=== PATIENT | male | born 1980 | race Caucasian/White ===

== ENCOUNTER 2020-06-02 22:25 | Emergency (ER) | payer OTHER ==
[~2020-06-02 22:25] MED LIST: FLEXERIL10 MG PO; MEDROL 4MG DOSEP4 MG PO; NORCO 5-325 TA1 EACH PO
[2020-06-03 00:14] LABS: BILIRUBIN NEGATIVE (NEGATIVE); BLOOD NEGATIVE Ery/uL (NEGATIVE); CLARITY CLEAR (CLEAR); COLOR YELLOW (YELLOW); GLUCOSE (U) NORMAL (NORMAL); LEUKOCYTES NEGATIVE Leu/uL (NEGATIVE); NITRITE NEGATIVE (NEGATIVE); PROTEIN NEGATIVE (NEGATIVE); UROBILINOGEN 0.2 mg/dL (0.2-1.0); pH 5.5 (5.0-9.0)
[2020-06-03 00:46] LABS: BASOPHIL 0.9 % (0-2); EOSINOPHIL 1.3 % (0-5); HCT 42.4 % (42.0-52.0); HGB 14.2 g/dl (13.2-18.0); LYMPHOCYTE 34.8 % (15-48); MCH 30.3 pg (25.0-31.0); MCHC 33.5 g/dL (32.0-36.0); MCV 90.4 fL (78.0-100.0); MONOCYTE 9.9 % (0-12); MPV 9.1 fL (6.0-9.5); NEUTROPHIL 52.1 % (41-80); NRBC 0.3; PLT 253 K/uL (150-400); RBC 4.69 M/uL (4.70-6.00); RDW 13.2 % (11.5-14.0); WBC 7.9 K/uL (4.0-10.5)
[2020-06-03 00:56] LABS: INR 1.02 (0.9-1.2); PROTHROMBIN TIME 12.7 SECONDS (11.4-13.6); PTT 29.6 SECONDS (22.2-34.7)
[2020-06-03 01:03] LABS: ALBUMIN 3.8 g/dL (3.4-5.0); BILIRUBIN - TOTAL 0.4 mg/dL (0.2-1.0); BUN/CREAT RATIO (CALC) 19.8 RATIO; CREATININE 0.86 mg/dL (0.67-1.17); GLOBULIN (CALCULATION) 3.5 g/dL; POTASSIUM 3.8 mmol/L (3.5-5.1); TOTAL PROTEIN 7.3 g/dL (6.4-8.2)
[2020-06-03] MEDS ORDERED: PROTONIX 40MG T40 MG PO (04:06)
[2020-06-03] MEDS ORDERED: BENTYL10 MG PO (04:06)
== END 2020-06-03 04:25 | disposition home or self-care (01) ==
LOC: FER 22:25
PROVIDERS: Emergency Medicine Emergency Medical Services
DX: K62.5 Hemorrhage of anus and rectum (principal); R51.9 Headache, unspecified; G89.29 Other chronic pain; R10.9 Unspecified abdominal pain; R11.10 Vomiting, unspecified; I10 Essential (primary) hypertension; Z90.49 Acquired absence of other specified parts of digestive tract; Z86.19 Personal history of other infectious and parasitic diseases
CPT/HCPCS: 36415; 80053; 81003; 82150; 83690; 85025; 85610; 85730; 86850; 86900; 86901; 93005; C9113; J1170; J1885; J2405; J7030; Q9967

== ENCOUNTER 2020-08-10 02:37 | Emergency (ER) | payer OTHER ==
[~2020-08-10 02:37] MED LIST changes: +BENTYL10 MG PO; +PROTONIX 40MG T40 MG PO
[2020-08-10 03:18] LABS: BASOPHIL 0.5 % (0-2); EOSINOPHIL 0.2 % (0-5); HCT 44.1 % (42.0-52.0); HGB 15.2 g/dl (13.2-18.0); LYMPHOCYTE 23.9 % (15-48); MCH 30.8 pg (25.0-31.0); MCHC 34.5 g/dL (32.0-36.0); MCV 89.3 fL (78.0-100.0); MONOCYTE 10.1 % (0-12); MPV 9.1 fL (6.0-9.5); NEUTROPHIL 64.8 % (41-80); NRBC 0; PLT 337 K/uL (150-400); RBC 4.94 M/uL (4.70-6.00); RDW 12.9 % (11.5-14.0); WBC 13.3 K/uL (4.0-10.5)
[2020-08-10 03:24] LABS: INR 1.05 (0.9-1.2); PTT 30.4 SECONDS (22.2-34.7)
[2020-08-10 03:25] LABS: D-DIMER 0.38 ug/mLFEU (0.00-0.41)
[2020-08-10 03:31] LABS: ALBUMIN 4.4 g/dL (3.4-5.0); BILIRUBIN - DIRECT 0.1 mg/dL (0.00-0.20); BILIRUBIN - TOTAL 0.7 mg/dL (0.2-1.0); CREATININE 1.27 mg/dL (0.67-1.17); POTASSIUM 3.7 mmol/L (3.5-5.1); TOTAL PROTEIN 8.4 g/dL (6.4-8.2)
[2020-08-10 03:34] LABS: LACTIC ACID 1.3 mmol/L (0.4-1.9)
[2020-08-10 04:05] LABS: BILIRUBIN 2+ mg/dL (NEGATIVE); BLOOD NEGATIVE Ery/uL (NEGATIVE); CLARITY CLEAR (CLEAR); COLOR YELLOW (YELLOW); GLUCOSE (U) NORMAL (NORMAL); LEUKOCYTES TRACE Leu/uL (NEGATIVE); NITRITE NEGATIVE (NEGATIVE); PROTEIN 1+ mg/dL (NEGATIVE); SPECIFIC GRAVITY >=1.030 (1.001-1.030)
[2020-08-10 04:09] LABS: AMPHETAMINES POSITIVE (NEGATIVE); BARBITURATES NEGATIVE (NEGATIVE); ECSTASY (MDMA) POSITIVE (NEGATIVE); MARIJUANA (THC) POSITIVE (NEGATIVE); METHADONE NEGATIVE (NEGATIVE); OPIATES NEGATIVE (NEGATIVE); OXYCODONE NEGATIVE (NEGATIVE)
[2020-08-10 04:12] LABS: BACTERIA TRACE; MUCOUS TRACE; SQUAMOUS EPITHELIAL CELLS RARE; TRANSITIONAL EPITHELIAL CELLS RARE
[2020-08-10] MEDS ORDERED: BENTYL10 MG PO (06:32)
[2020-08-10] MEDS ORDERED: MIRALAX 238GM238 GM PO (06:32)
== END 2020-08-10 07:42 | disposition home or self-care (01) ==
LOC: FER 02:37
PROVIDERS: Emergency Medicine Emergency Medical Services
DX: K59.00 Constipation, unspecified (principal); E86.0 Dehydration; I10 Essential (primary) hypertension; F17.210 Nicotine dependence, cigarettes, uncomplicated; Z90.49 Acquired absence of other specified parts of digestive tract; Z79.899 Other long term (current) drug therapy
CPT/HCPCS: 36415; 71275; 80053; 80305; 81001; 82150; 82248; 83605; 84145; 84484; 85025; 85379; 85610; 85730; 87040; 87088; 93005; J2060; J7030; Q9967

== ENCOUNTER 2020-12-17 23:38 | Emergency (ER) | payer OTHER ==
[~2020-12-17 23:38] MED LIST changes: +MIRALAX 238GM238 GM PO
[2020-12-18 02:01] LABS: BASOPHIL 0.3 % (0-2); EOSINOPHIL 1.3 % (0-5); HCT 48.2 % (42.0-52.0); HGB 15.7 g/dl (13.2-18.0); LYMPHOCYTE 35.5 % (15-48); MCH 28.4 pg (25.0-31.0); MCHC 32.6 g/dL (32.0-36.0); MCV 87.2 fL (78.0-100.0); MONOCYTE 8.2 % (0-12); MPV 9.2 fL (6.0-9.5); NEUTROPHIL 54.5 % (41-80); NRBC 0; PLT 288 K/uL (150-400); RBC 5.53 M/uL (4.70-6.00); RDW 12.3 % (11.5-14.0); WBC 9.1 K/uL (4.0-10.5)
[2020-12-18 02:18] LABS: BUN 8 mg/dL (7-18); BUN/CREAT RATIO (CALC) 9.6 RATIO; CHLORIDE 100 mmol/L (98-107); CO2 (BICARBONATE) 32 mmol/L (21-32); CREATININE 0.83 mg/dL (0.67-1.17); GLUCOSE 93 mg/dL (74-106); POTASSIUM 3.9 mmol/L (3.5-5.1)
[2020-12-18 02:19] LABS: C-REACTIVE PROTEIN < 0.20 mg/dL (<=0.90)
[2020-12-18] MEDS ORDERED: IBUPROFEN800 MG PO (06:18)
[2020-12-18] MEDS ORDERED: MEDROL 4MG DOSEP4 MG PO (06:18)
[2020-12-18] MEDS ORDERED: CYCLOBENZAPRINE10 MG PO (06:18)
[2020-12-18] MEDS ORDERED: PERCOCET 5-3251 EACH PO (06:18)
== END 2020-12-18 06:34 | disposition home or self-care (01) ==
LOC: FER 23:38
PROVIDERS: Emergency Medicine Emergency Medical Services
DX: M25.552 Pain in left hip (principal); M79.652 Pain in left thigh; I10 Essential (primary) hypertension; F17.210 Nicotine dependence, cigarettes, uncomplicated
CPT/HCPCS: 36415; 72131; 73700; 80048; 85025; 85379; 86140; 96372; J1040; J1170; J1885; J2800; J7050

== ENCOUNTER 2021-07-21 13:16 | Emergency (ER) | payer OTHER ==
[~2021-07-21 13:16] MED LIST changes: +CYCLOBENZAPRINE10 MG PO; +IBUPROFEN800 MG PO; +PERCOCET 5-3251 EACH PO
== END 2021-07-21 16:21 | disposition home or self-care (01) ==
LOC: FER 13:16
DX: H10.31 Unspecified acute conjunctivitis, right eye (principal); I10 Essential (primary) hypertension; Z28.310 Unvaccinated for COVID-19
CPT/HCPCS: 99282; J1885